=== PATIENT | female | born 1980 | race Caucasian/White ===

== ENCOUNTER 2018-11-21 13:54 | Inpatient (IN) | payer MEDICAID ==
[~2018-11-21] VITALS: Ht 162.6 cm; Wt 103.5 kg
[2018-11-21 15:15] VITALS: Ht 162.6 cm; Wt 103.5 kg
[2018-11-21] MEDS ORDERED: METHYLERGONOVINE 0.2 MG INJ IM PRN (15:30)
[2018-11-21] MEDS ORDERED: CARBOPROST 250 MCG/ML VIAL IM PRN (15:30)
[2018-11-21] MEDS ORDERED: OXYTOCIN 30 UNITS/LR 500 ML IV SCH ×3 (15:30)
[2018-11-21] MEDS ORDERED: LIDOCAINE 1% (MPF) 30 ML INJ INJ PRN (15:30)
[2018-11-21] MEDS ORDERED: OXYTOCIN 30 UNITS/LR 500 ML IV PRN (15:30)
[2018-11-21] MEDS ORDERED: MISOPROSTOL 200 MCG TAB PR PRN (15:30)
[2018-11-21] MEDS: LACTATED RINGER'S 1,000 ML IV SCH ×2 (15:31→19:24)
[2018-11-21] MEDS ORDERED: AMPICILLIN 2 GM/NS (PMX) 100 ML IVPB ONE (16:30)
[2018-11-21] MEDS: BUTORPHANOL 2 MG INJ IV PRN ×2 (18:52→22:08)
[2018-11-21] MEDS: AMPICILLIN 1 GM/NS (PMX) 50 ML IVPB SCH ×2 (19:24→22:19)
[2018-11-22] MEDS ORDERED: OXYTOCIN 30 UNITS/LR 500 ML IV SCH (02:17)
[2018-11-22] MEDS ORDERED: LACTATED RINGER'S 1,000 ML IV* SCH (02:17)
[2018-11-22] MEDS ORDERED: WITCH HAZEL/GLYCERIN PAD PR PRN (02:30)
[2018-11-22] MEDS ORDERED: MISOPROSTOL 200 MCG TAB PR PRN (02:30)
[2018-11-22] MEDS ORDERED: ONDANSETRON 4 MG INJ IV PRN (02:30)
[2018-11-22] MEDS ORDERED: HYDROCODONE/APAP (5/325) TAB PO PRN ×2 (02:30)
[2018-11-22] MEDS ORDERED: LANOLIN HPA 1 PKT TOP PRN (02:30)
[2018-11-22] MEDS ORDERED: MAGNESIUM HYDROXIDE 30ML CUP PO PRN (02:30)
[2018-11-22] MEDS ORDERED: NA PHOSPHATE/BIPHOS 133 ML ENEMA PR PRN (02:30)
[2018-11-22] MEDS ORDERED: METHYLERGONOVINE 0.2 MG TAB PO PRN (02:30)
[2018-11-22] MEDS ORDERED: CARBOPROST 250 MCG/ML VIAL IM PRN (02:30)
[2018-11-22] MEDS ORDERED: METHYLERGONOVINE 0.2 MG INJ IM PRN (02:30)
[2018-11-22] MEDS ORDERED: BENZOCAINE 20% 56 ML SPRAY TOP PRN (02:30)
[2018-11-22] MEDS ORDERED: OXYTOCIN 30 UNITS/LR 500 ML IV PRN (02:30)
[2018-11-22] MEDS ORDERED: DIPHENHYDRAMINE 25 MG CAP PO PRN (02:30)
[2018-11-22] MEDS ORDERED: ZOLPIDEM 5 MG TAB PO PRN (02:30)
[2018-11-22 03:30] VITALS: BP 122/62; PULSE 74; RESP 20
[2018-11-22 05:22] VITALS: BP 120/66; PULSE 74; RESP 20
[2018-11-22 08:20] VITALS: BP 106/57; PULSE 62; RESP 16
[2018-11-22] MEDS: SENNA/DOCUSATE NA (8.6MG/50MG) TAB PO SCH ×2 (09:18→21:14)
[2018-11-22 12:16] VITALS: BP 100/61; PULSE 76; RESP 17
[2018-11-22 15:49] VITALS: BP 117/61; PULSE 68; RESP 18
[2018-11-22] MEDS: IBUPROFEN 800 MG TAB PO PRN (15:55)
[2018-11-22 20:40] VITALS: BP 108/59; PULSE 62; RESP 18
[2018-11-23] MEDS: IBUPROFEN 800 MG TAB PO PRN (00:35)
[2018-11-23 03:34] VITALS: BP 99/59; PULSE 68; RESP 18
[2018-11-23 08:30] VITALS: BP 108/56; PULSE 74; RESP 18
[2018-11-23] MEDS: SENNA/DOCUSATE NA (8.6MG/50MG) TAB PO SCH (09:41)
[2018-11-23] MEDS ORDERED: MEASLES,MUMPS,RUBELLA VACCINE INJ SC* ONE (12:00)
[2018-11-23] MEDS ORDERED: DIPHTH/TET/ACEL PERTUSS (ADULT) 0.5 ML VIAL IM* ONE (12:00)
[2018-11-24] MEDS ORDERED: MEASLES,MUMPS,RUBELLA VACCINE INJ SC* ONE (09:00)
[2018-11-24] MEDS ORDERED: DIPHTH/TET/ACEL PERTUSS (ADULT) 0.5 ML VIAL IM* ONE (09:00)
[2018-11-24] MEDS ORDERED: VARICELLA VACCINE LIVE/PF 1,350 UNIT/0.5 ML ML SC* ONE (09:00)
== END 2018-11-23 17:48 | disposition home or self-care (01) | DRG 807 ==
LOC: L-D 13:54 → MS1 11-22 02:53
PROVIDERS: ADMIT Obstetrics & Gynecology; ATTEND Obstetrics & Gynecology
PROC: 10H073Z Insertion of Monitoring Electrode into Products of Conception, Via Natural or Artificial Opening (ICD-10-PCS; 2018-11-21)
PROC: 4A1H7CZ Monitoring of Products of Conception, Cardiac Rate, Via Natural or Artificial Opening (ICD-10-PCS; 2018-11-21)
PROC: 10E0XZZ Delivery of Products of Conception, External Approach (ICD-10-PCS; principal; 2018-11-22)
DX: O70.0 First degree perineal laceration during delivery (principal); Z37.0 Single live birth; Z3A.39 39 weeks gestation of pregnancy; Z23 Encounter for immunization
CPT/HCPCS: 76815; 85025; 85610; 85730; 86592; 86850; 86900; 86901; 90715; A4310; J0290; J0595; J2590; J7120